=== PATIENT | female | born 1960 | race Caucasian/White ===

== ENCOUNTER 2020-05-04 16:04 | Outpatient (CLI) | payer BC, SELFPAY | END 2020-05-04 16:05 | disposition home or self-care (01) | LOC: LAB 16:10 | PROVIDERS: PCP Family Medicine; Visit Provider Family Medicine | DX: R19.7 Diarrhea, unspecified (principal) | CPT/HCPCS: 87506 ==

== ENCOUNTER 2020-07-22 08:02 | Outpatient (CLI) | payer BC, SELFPAY ==
--- NOTE | 2020-07-22 08:09 | MM_ITS ---
WS: [id number] BILATERAL SCREENING DIGITAL MAMMOGRAM WITH CAD HISTORY: SCREENING COMPARISON: 11/28/2018 and 10/12/2017 Bilateral CC and MLO views submitted. Computer aided detection analyzed. Breast composition: The breasts are heterogeneously dense, which may obscure small masses. No suspici ous masses, microcalcifications or architectural distortion. Prepectoral implants remain intact. Part ially capsulated implants with calcification. Benign calcifications in each breast. MM/[id number] IMPRESSION: BI-RADS: 2-Benign FOLLOW UP: 1 Year Follow-up
== END 2020-07-22 08:03 | disposition home or self-care (01) ==
LOC: RADSHAW 08:03
PROVIDERS: PCP Family Medicine; Visit Provider Family Medicine
DX: Z12.31 Encounter for screening mammogram for malignant neoplasm of breast (principal)
CPT/HCPCS: 77067

== ENCOUNTER 2021-01-25 10:54 | Emergency (ER) | payer OTHER, SELFPAY ==
[2021-01-25 11:24] VITALS: BP 167/85; PULSE 75; RESP 16; TEMP 36.5; O2SAT 98; BMI 33.2
--- NOTE | 2021-01-25 11:31 | ECG_ITS ---
[facility] Test Date: 2021-01-25 Pat Name: Nimo Maxwell Department: Room: Gender: Female Manager Programming: : 1960 Requested By: Kd Villafana Order Number: [id number] Reading MD: ANNE MARIE VILLANUEVA Measurements Intervals [place] Rate: 76 P: 34 FL: 150 QRS: 57 QRSD: 75 T: 46 QT: 378 QTc: 425 Interpretive Statements SINUS RHYTHM LOW QRS VOLTAGE IN PRECORDIAL LEADS [QRS DEFLECTION < 1.0 mV IN CHEST LEADS] NONSPECIFIC T-WAVE ABNORMALITY Compared to ECG 10/11/2018 18:31:00 No significant changes Electronically Signed On 01-25-2021 19:56:46 SENIOR SCIENTIST by ANNE MARIE VILLANUEVA [id number]
--- NOTE | 2021-01-25 11:59 | CT_ITS ---
WS: [id number] CT CHEST ANGIOGRAPHY WITH REFORMATS HISTORY: chest pain dyspnea, post covid TECHNIQUE: Contiguous axial images are obtained through the chest during arterial injection of intrav enous contrast. Images are reconstructed to evaluate the pulmonary arteries. MIP imaging also reviewe d. All CT scans at [facility] use at least one of these dose optimization techniques: aut omated exposure control; mA and/or kV adjustment per patient size (includes targeted exams where dose is matched to clinical indication); or iterative reconstruction. CONTRAST: Omnipaque 300; 95 mL IV. DLP: 605.27 mGy.cm COMPARISON: 10/11/2018 Adequate opacification of the pulmonary arteries. Normal size pulmonary artery with no intraluminal f illing defects. Normal size aorta. No pericardial or pleural effusions. Lungs are clear. No opacifica tions or pneumonia. No mediastinal or hilar adenopathy. Bilateral breast implants are intact. Small hiatal hernia. No abnormality upper abdomen. CT/CT angio chest PE protcl [id number] IMPRESSION: 1. No pulmonary embolism. 2. No pneumonia or pneumonitis.
--- NOTE | 2021-01-25 11:59 | W.ED.CHESTPA ---
HPI - Chest Pain General: Chief Complaint: Chest Pain Stated Complaint: Chest Pain Time Seen by Provider: 01/25/21 11:22 History of Present Illness: HPI narrative: 60 yo female present to the ER with complaints of intermittent epigastric/chest pain. Patient was at rest this morning began having discomfort lasted 3 to 5 minutes and resolved spontaneously. She had no shortness of breath no nausea vomiting diarrhea. She did test positive in November for Covid. She has not had any cough or discomfort. No previous history of coronary artery disease. MD complaint: chest discomfort Onset (ago): minute(s) Timing of current episode: episodic Prior episodes: Yes Onset: during rest Pain location: left chest and epigastric Pain radiation: none Severity: mild Quality: aching and heaviness Relieving factors: nothing Exacerbating factors: nothing Associated symptoms: Deny abdominal pain, diaphoresis, dyspnea, fever(s), leg edema, nausea, palpitations, sense of impending doom, syncope or vomiting Treatment prior to arrival: aspirin Review of Systems Const: Denies: fever(s) or diaphoresis ENMT: Denies: throat pain, ear or mastoid pain, nasal discharge or nasal congestion Card: Denies: palpitations or syncope Resp: Denies: dyspnea GI: Denies: abdominal pain, nausea or vomiting : Denies: flank pain, difficulty voiding, dysuria, urinary frequency or urinary urgency Skin/Breast: Denies: rash or pruritus Physical Exam Const: COMMON NORMALS: no acute distress GENERAL APPEARANCE: cooperative and comfortable ORIENTATION/CONSCIOUSNESS: Yes awake, Yes oriented to person, Yes oriented to place and Yes oriented to time HENMT: COMMON NORMALS: normocephalic, atraumatic and hearing grossly normal bilaterally HEAD & SCALP: normocephalic and atraumatic Neck/C-Spine: COMMON NORMALS: no JVD Resp: COMMON NORMALS: normal respiratory effort, No retractions, No use of accessory muscles and clear to auscultation bilaterally AUSCULTATION: clear to auscultation bilaterally Cardio: COMMON NORMALS: no JVD, regular rate, regular rhythm and No murmurs present (Cardio) RATE: regular rate RHYTHM: regular rhythm GI: COMMON NORMALS: Soft to palpation and No hepatosplenomegaly present AUSCULTATION: Yes normoactive bowel sounds PALPATION: Yes Soft to palpation, No Tenderness to palpation present (GI), No Guarding due to palpation present (GI) and Yes No hepatosplenomegaly present Extremity: COMMON NORMALS: normal to inspection, capillary refill normal, no clubbing, cyanosis or edema, no calf tenderness and no pedal edema Neuro: SENSORIUM/ORIENTATION: Yes oriented to person, Yes oriented to place and Yes oriented to time Skin: COMMON NORMALS: no rashes or lesions noted GENERAL SKIN EXAM: no rashes or lesions noted Course Vital Signs: Vital signs: Vital Signs Temperature 97.7 F 01/25/21 11:24 Pulse Rate 75 01/25/21 15:40 Respiratory Rate 16 01/25/21 15:40 Blood Pressure 128/78 01/25/21 15:40 Pulse Oximetry 97 01/25/21 15:40 MDM - Chest Pain MDM Narrative: Medical decision making narrative: Troponin negative. EKG is unremarkable. She does have elevated blood pressure will start isosorbide mononitrate continue on 81 mg daily of aspirin and have her follow-up with his primary care physician worsening or change symptoms return. Lab Data: Labs: Lab Results 01/25/21 01/25/21 01/25/21 Range/Units 12:05 12:05 12:05 WBC 5.1 (4.0-10.0) 10^3/ uL RBC 4.15 (4.1-5.3) 10^6/u L Hgb 12.5 (11.5-15.3) g/dL Hct 38.6 (37.0-47.0) % MCV 93.0 (81-99) fL MCH 30.1 (28.0-34.0) pg MCHC 32.4 (30.0-36.0) g/dL RDW 12.7 (12.1-15.1) % Plt Count 258 (130-400) 10^3/c mm MPV 10.4 (7.4-10.4) fL Neut % (Auto) 54.8 % Lymph % (Auto) 37.1 % [place] % (Auto) 6.1 % Eos % (Auto) 1.2 % Baso % (Auto) 0.6 % Neut # (Auto) 2.78 (1.8-7.7) 10^3/u L Lymph # (Auto) 1.9 (0.8-4.8) 10^3/u L [place] # (Auto) 0.3 (0.2-0.9) 10^3/u L Eos # (Auto) 0.1 (0.0-0.8) 10^3/u L Baso # (Auto) 0.0 (0.0-0.1) 10^3/u L Nucleated RBC % (a uto) 0 % Nucleated RBCs # 0.0 /100WBC Sodium 140 (136-145) mmol/L Potassium 4.2 (3.5-5.1) mmol/L Chloride 103 (98-107) mmol/L Carbon Dioxide 26 (22-29) mmol/L Anion Gap 15.2 (5-19) BUN 8 (8-23) mg/dL Creatinine 0.6 (0.5-0.9) mg/dL GFR Calculation 101.6 (90-130) mL/min Glucose 93 (65-115) mg/dL Calculated Osmolal ity 288 (285-295) mOsm/k g Calcium 9.6 (8.5-10.5) mg/dL Total Bilirubin 0.2 (0.15-1.2) mg/dL AST 28 (0-32) U/L ALT 25 (0-33) U/L Alkaline Phosphata se 74 (35-105) IU/L Creatine Kinase 54 (26-192) U/L Troponin T Baselin e 6 (0-10) ng/L Troponin T 120 Min [place] (0-10) ng/L Delta Troponin T (0-10) ABS# Total Protein 7.5 (6.6-8.7) g/dL Albumin 4.7 (3.5-5.2) g/dL Globulin 2.8 (1.3-4.6) g/dL 01/25/21 Range/Units 14:04 WBC (4.0-10.0) 10^3/ uL RBC (4.1-5.3) 10^6/u L Hgb (11.5-15.3) g/dL Hct (37.0-47.0) % MCV (81-99) fL MCH (28.0-34.0) pg MCHC (30.0-36.0) g/dL RDW (12.1-15.1) % Plt Count (130-400) 10^3/c mm MPV (7.4-10.4) fL Neut % (Auto) % Lymph % (Auto) % [place] % (Auto) % Eos % (Auto) % Baso % (Auto) % Neut # (Auto) (1.8-7.7) 10^3/u L Lymph # (Auto) (0.8-4.8) 10^3/u L [place] # (Auto) (0.2-0.9) 10^3/u L Eos # (Auto) (0.0-0.8) 10^3/u L Baso # (Auto) (0.0-0.1) 10^3/u L Nucleated RBC % (a uto) % Nucleated RBCs # /100WBC Sodium (136-145) mmol/L Potassium (3.5-5.1) mmol/L Chloride (98-107) mmol/L Carbon Dioxide (22-29) mmol/L Anion Gap (5-19) BUN (8-23) mg/dL Creatinine (0.5-0.9) mg/dL GFR Calculation (90-130) mL/min Glucose (65-115) mg/dL Calculated Osmolal ity (285-295) mOsm/k g Calcium (8.5-10.5) mg/dL Total Bilirubin (0.15-1.2) mg/dL AST (0-32) U/L ALT (0-33) U/L Alkaline Phosphata se (35-105) IU/L Creatine Kinase (26-192) U/L Troponin T Baselin e (0-10) ng/L Troponin T 120 Min [place] 6.00 (0-10) ng/L Delta Troponin T 0 (0-10) ABS# Total Protein (6.6-8.7) g/dL Albumin (3.5-5.2) g/dL Globulin (1.3-4.6) g/dL Discharge Plan Discharge Patient Disposition: Home Clinical Impression: Atypical chest pain Condition: Stable Prescriptions: New isosorbide mononitrate 30 mg tablet extended release 24 hr 30 mg PO DAILY Qty: 20 RF: 0 No Action Zyrtec 10 mg Tablet 10 mg PO DAILY RF: 0 NyQuil 7.5-60-30-1,000 mg/30 mL Liquid See Rx Instructions .ROUTE .COMPLEX RF: 0 Children's Multi Vitamins Tablet,Chewable 1 tab PO DAILY PRN (Reason: UNKNOWN) RF: 0 Aspir-81 81 mg Tablet,Delayed Release (Dr/Ec) 81 mg PO ONCE RF: 0 pantoprazole 40 mg tablet,delayed release (DR/EC) 40 mg PO DAILY PRN (Reason: Acid Reflux) RF: 0 Benadryl 25 mg Capsule 50 mg PO BEDTIME RF: 0 albuterol sulfate 90 mcg/actuation HFA aerosol inhaler 2 puff INHALATION Q4H PRN (Reason: Shortness Of Breath) RF: 0 Flonase 50 mcg/actuation [place],Suspension 2 spray INTRANASAL DAILY RF: 0 melatonin 10 mg Tablet 10 mg PO BEDTIME RF: 0 Clobetasol 0.05% Vaginal Ointm See Rx Instructions .ROUTE .COMPLEX RF: 0 Discharge Orders: Discharge ED (Routine); Ordered 01/25/21 Ordered By: Kd Santiago Referrals: Adolfo Louie MD [Primary Care Provider] - Discharge Diet: Usual diet Discharge Activity: Limit activity as instructed Patient Instructions: Opioid Safety Activity Restrictions/Additional Instructions: Case management will call with an appointment for a sestamibi stress test. Coding Level of Care Code ED Senior Health Physics Technician for Shana Flynn
[2021-01-25 12:22] LABS: Basophils % 0.6 %; Eosinophils # 0.1 10^3/uL (0.0-0.8); Eosinophils % 1.2 %; Hematocrit 38.6 % (37.0-47.0); Hemoglobin 12.5 g/dL (11.5-15.3); Lymphocytes # 1.9 10^3/uL (0.8-4.8); Lymphocytes % 37.1 %; Mean Corpuscular HGB Conc 32.4 g/dL (30.0-36.0); Mean Corpuscular Hemoglobin 30.1 pg (28.0-34.0); Mean Platelet Volume 10.4 fL (7.4-10.4); Monocytes # 0.3 10^3/uL (0.2-0.9); Monocytes % 6.1 %; Neutrophils # 2.78 10^3/uL (1.8-7.7); Neutrophils % 54.8 %; Nucleated Red Blood Cells % 0 %; Platelet Count 258 10^3/cmm (130-400); Red Blood Count 4.15 10^6/uL (4.1-5.3); Red Cell Distribution Width 12.7 % (12.1-15.1); White Blood Count 5.1 10^3/uL (4.0-10.0)
[2021-01-25 12:43] LABS: Alanine Aminotransferase 25 U/L (0-33); Albumin Level 4.7 g/dL (3.5-5.2); Alkaline Phosphatase 74 IU/L (35-105); Blood Urea Nitrogen 8 mg/dL (8-23); Calcium 9.6 mg/dL (8.5-10.5); Carbon Dioxide 26 mmol/L (22-29); Chloride 103 mmol/L (98-107); Creatine Phosphokinase 54 U/L (26-192); Globulin 2.8 g/dL (1.3-4.6); Glomerular Filtration Rate 101.6 mL/min (90-130); Glucose 93 mg/dL (65-115); Osmolality Calculated 288 mOsm/kg (285-295); Sodium 140 mmol/L (136-145); Total Bilirubin 0.2 mg/dL (0.15-1.2); Total Protein 7.5 g/dL (6.6-8.7)
[2021-01-25 12:44] LABS: Troponin(5th) Baseline 6 ng/L (0-10)
[2021-01-25 12:55] VITALS: RESP 18
[2021-01-25 12:56] VITALS: O2SAT 98
[2021-01-25 13:16] LABS: Anion Gap 15.2 (5-19); Aspartate Amino Transferase 28 U/L (0-32); Potassium 4.2 mmol/L (3.5-5.1)
--- NOTE | 2021-01-25 13:31 | ECG_ITS ---
[facility] Test Date: 2021-01-25 Pat Name: Nimo Maxwell Department: Room: Gender: Female Business Process Specialist: : 1960 Requested By: Kd Villafana Order Number: [id number] Reading MD: ANNE MARIE VILLANUEVA Measurements Intervals [place] Rate: 66 P: 53 VA: 158 QRS: 62 QRSD: 73 T: 52 QT: 405 QTc: 427 Interpretive Statements SINUS RHYTHM LOW QRS VOLTAGE IN PRECORDIAL LEADS [QRS DEFLECTION < 1.0 mV IN CHEST LEADS] NONSPECIFIC ST & T-WAVE ABNORMALITY Compared to ECG 01/25/2021 11:26:50 No significant changes Electronically Signed On 01-25-2021 20:01:03 CHOCOLATE FINISHER OPERATOR by ANNE MARIE VILLANUEVA [id number]
[2021-01-25] MEDS: iohexol 350 mg/mL 100 mL Btl IV (13:33)
[2021-01-25 14:46] LABS: Troponin 5 2HR Delta 0 ABS# (0-10)
[2021-01-25 15:00] VITALS: BP 128/78; PULSE 75; RESP 16; O2SAT 97
[2021-01-25 15:40] VITALS: BP 128/78; PULSE 75; RESP 16; O2SAT 97
== END 2021-01-25 15:41 | disposition home or self-care (01) ==
PROVIDERS: Emergency Provider Family Medicine; PCP Family Medicine
DX: R07.89 Other chest pain (principal); Z79.82 Long term (current) use of aspirin
CPT/HCPCS: 36415; 71275; 80053; 82550; 84484; 85025; 93005; 99283; Q9967

== ENCOUNTER 2021-02-11 08:59 | Outpatient (CLI) | payer OTHER, SELFPAY ==
[2021-02-11 09:21] VITALS: BMI 33.2
--- NOTE | 2021-02-11 09:44 | ECG_ITS ---
"[facility] Test Date: 2021-02-11 Pat Name: Nimo Maxwell Department: Room: Gender: Female Campaign Developer: : 1960 Requested By: Adolfo Garcia Order Number: [id number] Mark MD: ANNE MARIE VILLANUEVA Interpretive Statements NAME OF STUDY: EXERCISE SESTAMIBI STRESS TEST INDICATION: Atypical Chest Pain, EXERCISE DATA: The patient was exercised by Arnie protocol. Baseline heart rate was 79 beats per minute. Baseline blood pressure was 160/88 millimeters of mercury. Target heart rate was 159 beats per minute. Maximum heart rate achieved was 159, which was 100 % of the target heart rate. Maximum blood pressure was 217/110 millimeters of mercury. Total exercise time was 70 minutes 30 seconds. Maximum METs achieved was 10.2, maximum VO2 was 35.7. The reason for ending the test was maximum effort achieved. The patient complained of shortness of breath during the stress test, which then resolved at the end of the test. ELECTROCARDIOGRAM: BASELINE: Sinus rhythm, normal axis, lateral mild ST-T flattening at the baseline noted. EXERCISE: At the peak exercise level, no significant ST-T changes suggestive of ischemia noted. RECOVERY: During the recovery period, heart rate dropped appropriately. No significant ST-T changes in the recovery suggestive of ischemia noted. CONCLUSION: 1. Exercise capacity fair. 2. Heart rate response was appropriate. 3. Blood pressure response was hypertensive. 4. Symptoms not suggestive of ischemia. 5. Electrocardiogram portion of the stress test was not suggestive of ischemia. 6. Nuclear scan will be documented separately. Electronically Signed On 02-13-2021 20:29:58 CDT by ANNE MARIE VILLANUEVA [email or web address] [email or web address] [facility].[email or web address]/store/OM/[id number]"
--- NOTE | 2021-02-11 09:45 | NMCV_ITS ---
[facility] perf SPECT r/s* [id number] Nimo Maxwell Age: 60 Gender: F : 1960 Exam Date: 02/11/2021 10:33 Ordering Phys: Adolfo Louie MD Technologist: ANA Lester Exam Location: [facility] Indications: ATYPICAL CHEST PAIN STRESS TEST Please [facility] IMAGE PROTOCOL Rest/Stress 1 Exercise Day Radiopharmaceutical Dose (mCi) Administration Site Administered by Rest: Tc-99m 10.6 IV ANA Lester Sestamibi Stress:Tc-99m 33.0 IV ANA Bryan Sestamibi Rest: 11-Feb-2021 60 Discovery 630 Stress: 11-Feb-2021 30 Discovery 630 Radiopharmaceutical was injected at 90 % maximum heart rate. Images obtained in supine and prone position. SPECT RESULTS Technical Quality: Excellent Raw Data Analysis: Normal Image Corrections: No attenuation or motion correction applied Summed Stress Score: 0 Summed Rest Score: 1 Summed Difference Score: 0 PERFUSION FINDINGS SPECT images demonstrate homogeneous tracer distribution throughout the myocardium. FUNCTIONAL RESULTS (calculated via Gated SPECT) Stress Image LV EF (%): 79 Stress EDV (mL):57 TID: 1.33 Stress ESV (mL):12 Rest Image LV EF (%): 79 FUNCTIONAL FINDINGS: Hyperdynamic LV function IMPRESSIONS Myocardial perfusion imaging is normal and low probability for obstructive coronary disease.TID ratio is elevated which could be secondary left ventricle hypertrophy/subendocardial ischemia in the absence of other parameters. EKG segment will be documented separately. Anya Kauffman MD (Electronically Signed) Final Date: 11 February 2021 21:06 S
[2021-02-11 11:38] VITALS: BP 151/92; PULSE 89
== END 2021-02-11 09:00 | disposition home or self-care (01) ==
LOC: CDL 09:06
PROVIDERS: PCP Family Medicine; Visit Provider Family Medicine
DX: R07.89 Other chest pain (principal); I10 Essential (primary) hypertension
CPT/HCPCS: 78452; A9500

== ENCOUNTER 2021-11-07 11:55 | Outpatient (CLI) | payer OTHER, SELFPAY ==
--- NOTE | 2021-11-07 11:58 | MM_ITS ---
WS: [id number] BILATERAL DIGITAL SCREENING MAMMOGRAPHY WITH CAD CLINICAL INFORMATION: SCREENING HISTORY: Screening mammogram. No current complaints. COMPARISON: July 22, 2020 TECHNIQUE: Bilateral CC and MLO views. FINDINGS: Bilateral breast implant capsular calcifications. The breasts are composed of heterogeneous fibroglandular density tissue, which can limit the detectio n of small underlying mass lesions. Punctate and lucent centered calcifications. No suspicious mass, asymmetry, calcifications, or architectural distortion. No evidence of malignancy. MM/[place] [id number] IMPRESSION: BI-RADS: 2-Benign FOLLOW UP: 1 Year Follow-up Recommend return to annual screening mammography.
== END 2021-11-07 11:56 | disposition home or self-care (01) ==
LOC: RADSHAW 11:57
PROVIDERS: PCP Family Medicine; Visit Provider Family Medicine
DX: Z12.31 Encounter for screening mammogram for malignant neoplasm of breast (principal)
CPT/HCPCS: 77067

== ENCOUNTER 2022-05-09 07:45 | Outpatient (CLI) | payer OTHER, SELFPAY ==
--- NOTE | 2022-05-09 10:31 | PFTS_ITS ---
Date of Study:05/09/22 Date of Dictation: 05/11/2022 MECHANICS: Prebronchodilator forced vital capacity (FVC) is normal Prebronchodilator forced expiratory volume in one second (FEV1) is normal FEV1/FVC is normal. There is no postbronchodilator study. FLOW VOLUME LOOP: Normal LUNG VOLUMES: Total lung capacity (TLC) is mildly reduced. Residual volume ( RV) is mildly reduced DIFFUSING CAPACITY FOR CARBON MONOXIDE: Normal . INTERPRETATION: The prebronchodilator spirometry is normal.? Postbronchodilator study not performed. Lung volumes are mildly reduced suggestive of possible restrictive component. Gas transfer is normal.? Correlate clinically. MTDD
== END 2022-05-09 07:46 | disposition home or self-care (01) ==
LOC: RT 07:46
PROVIDERS: PCP Family Medicine; Visit Provider Family Medicine
DX: R05.3 Chronic cough (principal)
CPT/HCPCS: 94010; 94726; 94729

== ENCOUNTER 2023-09-20 08:11 | Outpatient (CLI) | payer OTHER, SELFPAY ==
--- NOTE | 2023-09-20 08:13 | MM_ITS ---
WS: [id number] BILATERAL SCREENING DIGITAL BREAST MAMMOGRAPHY WITH JOSUE DISPLACEMENT VIEWS. CAD PERFORMED. HISTORY: SCREENING COMPARISON: 11/07/2021 and 07/22/2020 Bilateral craniocaudal and mediolateral oblique views are performed with tomosynthesis and SM. Josue displacement views in CC and MLO projection also performed. Breasts composition: The breasts are heterogeneously dense, which may obscure small masses. Prepecto ral implants are heavily calcified. There is mild capsular contraction. Very similar in appearance to the prior studies. No suspicious calcifications or mass. No distortion. IMPRESSION: MM/[place] [id number] BI-RADS: 2-Benign FOLLOW-UP: 1 Year Follow-up
== END 2023-09-20 08:12 | disposition home or self-care (01) ==
LOC: RAD 08:11
PROVIDERS: PCP Family Medicine; Visit Provider Family Medicine
DX: Z12.31 Encounter for screening mammogram for malignant neoplasm of breast (principal)
CPT/HCPCS: 77063; 77067

== ENCOUNTER 2025-10-15 09:04 | Outpatient (CLI) | payer SELFPAY | END 2025-10-15 09:05 | disposition home or self-care (01) | LOC: SPT 09:10 | PROVIDERS: PCP Family Medicine; Visit Provider Podiatrist Foot & Ankle Surgery | DX: Z46.89 Encounter for fitting and adjustment of other specified devices (principal); S82.831A Other fracture of upper and lower end of right fibula, initial encounter for closed fracture; W18.42XA Slipping, tripping and stumbling without falling due to stepping into hole or opening, initial encounter | CPT/HCPCS: 97760; 99204; L1902 ==

== ENCOUNTER → 2025-11-03 08:16 | Outpatient (BNVA) | payer MEDICARE, SELFPAY | PROVIDERS: PCP Family Medicine; Visit Provider Podiatrist Foot & Ankle Surgery | DX: S82.831A Other fracture of upper and lower end of right fibula, initial encounter for closed fracture (principal); X58.XXXA Exposure to other specified factors, initial encounter | CPT/HCPCS: 99213 ==